=== PATIENT | female | born 1955 | race Caucasian/White ===

== ENCOUNTER 2021-11-02 16:26 | Emergency (ER) | payer OTHER ==
[~2021-11-02 16:26] MED LIST: ASPIRIN EC81 MG PO; CRESTOR20 MG PO; KLOR-CON M2020 MEQ PO; MAXZIDE 37.5/21 EACH PO; SYNTHROID25 MCG PO; TURMERIC1 GM PO; VITAMIN D32000 UNI1 PO
[2021-11-02 18:00] LABS: HEMOGLOBIN 13.7 gm/dl (12.3-15.3); RED BLOOD COUNT 4.9 M/UL (4.00-5.10); WHITE BLOOD COUNT 4.7 K/UL (4.5-11.0)
[2021-11-02 18:59] LABS: BUN/CREATININE RATIO 14 (0-10)
[2021-11-02] MEDS ORDERED: ZOFRAN ODT 4 MG4 MG PO (19:06)
[2021-11-02] MEDS ORDERED: BENTYL 20MG TAB20 MG PO (19:06)
[2021-11-02] MEDS ORDERED: LODINE CAP 300300 MG PO (19:06)
== END 2021-11-02 19:26 | disposition home or self-care (01) ==
LOC: ER1 16:26
PROVIDERS: Nurse Practitioner
DX: R10.9 Unspecified abdominal pain (principal); I10 Essential (primary) hypertension; Z88.0 Allergy status to penicillin; Z88.2 Allergy status to sulfonamides
CPT/HCPCS: 80053; 81001; 85025; 96374; 99284; J1885